=== PATIENT | male | born 1965 | race Caucasian/White ===

== ENCOUNTER 2020-08-25 16:53 | Emergency (ER) | payer OTHER, BC ==
[~2020-08-25] VITALS: Ht 170.2 cm; Wt 86.2 kg
[2020-08-25 16:55] VITALS: BP 126/86
[2020-08-25] MEDS ORDERED: SEROQUEL 100 M100 MG PO (16:58)
[2020-08-25] MEDS ORDERED: KEPPRA XR500 MG PO (16:58)
[2020-08-25] MEDS ORDERED: NORVASC10 MG PO (16:59)
[2020-08-25] MEDS ORDERED: COZAAR 50 MG TA50 MG PO (17:00)
== END 2020-08-25 17:05 | disposition home or self-care (01) ==
LOC: EDSEX 16:53 → ER 16:53
DX: F41.9 Anxiety disorder, unspecified (principal); F22 Delusional disorders; F15.10 Other stimulant abuse, uncomplicated; F17.210 Nicotine dependence, cigarettes, uncomplicated; Z79.899 Other long term (current) drug therapy

== ENCOUNTER 2021-04-04 15:18 | Emergency (ER) | payer OTHER, BC ==
[~2021-04-04] VITALS: Ht 170.2 cm; Wt 90.7 kg
[~2021-04-04 15:18] MED LIST: COZAAR 50 MG TA50 MG PO; KEPPRA XR500 MG PO; NORVASC10 MG PO; SEROQUEL 100 M100 MG PO
[2021-04-04 15:47] LABS: BASOPHILS 0.5 % (0.0-2.0); EOSINOPHILS 0.7 % (0.0-3.0); HEMATOCRIT 39.7 % (42.0-52.0); HEMOGLOBIN 13.5 gm/dL (14.0-18.0); LYMPHOCYTES 17.5 % (24.0-44.0); MCH 33.4 pg (26.0-34.0); MCV 98.3 fL (80.0-100.0); MONOCYTES 10.6 % (1.0-8.0); PLATELET COUNT 298 thou/uL (150-400); POLYS 70.7 % (36.0-66.0); RBC 4.04 mil/uL (4.50-6.00); RDW 14.3 % (10.5-14.5); WBC 8.5 thou/uL (4.0-11.0)
[2021-04-04 15:56] LABS: ANION GAP 9 mmol/L (7-16); BUN 20 mg/dL (7-18); CHLORIDE 103 mmol/L (98-107); CO2 26 mmol/L (21-32); CREATININE 1.1 mg/dL (0.7-1.3); GLUCOSE 116 mg/dL (74-106); POTASSIUM 3.8 mmol/L (3.5-5.1); SODIUM 138 mmol/L (136-145)
[2021-04-04 16:02] LABS: SALICYLATE < 2.8 mg/dL (2.8-20.0); SGOT 31 U/L (15-37); SGPT 42 U/L (16-63); TOTAL BILIRUBIN 0.6 mg/dL (0.2-1.0); TOTAL PROTEIN 7.8 g/dL (6.4-8.2)
[2021-04-04 17:14] LABS: URINE BILIRUBIN NEGATIVE (Negative); URINE BLOOD NEGATIVE (Negative); URINE CLARITY CLEAR; URINE COLOR YELLOW; URINE GLUCOSE-RANDOM* NEGATIVE (Negative); URINE KETONES NEGATIVE (Negative); URINE LEUKOCYTES-REFLEX NEGATIVE (Negative); URINE NITRITE-REFLEX NEGATIVE (Negative); URINE PROTEIN (DIPSTICK) NEGATIVE (Negative); URINE SPECIFIC GRAVITY <= 1.005 (1.005-1.035); URINE UROBILINOGEN 0.2 E.U./dl (0.2-1.0)
[2021-04-04 17:22] LABS: AMP/METHAMP Negative (Negative); BARBITURATES Negative (Negative); BENZODIAZEPINES Negative (Negative); COCAINE Negative (Negative); METHADONE Negative (Negative); OPIATES Negative (Negative); PCP Negative (Negative)
[2021-04-04 18:40] VITALS: BP 000/000
== END 2021-04-04 18:41 | disposition home or self-care (01) ==
LOC: ER 15:18
PROVIDERS: Physician Assistant
DX: F32.9 Major depressive disorder, single episode, unspecified (principal); F17.210 Nicotine dependence, cigarettes, uncomplicated; Z20.822 Contact with and (suspected) exposure to COVID-19

== ENCOUNTER 2021-09-18 23:43 | Emergency (ER) | payer OTHER, BC ==
[~2021-09-18] VITALS: Ht 170.2 cm; Wt 104.3 kg
[2021-09-19 00:26] LABS: URINE BILIRUBIN NEGATIVE (Negative); URINE BLOOD NEGATIVE (Negative); URINE CLARITY CLEAR; URINE COLOR YELLOW; URINE GLUCOSE-RANDOM* NEGATIVE (Negative); URINE KETONES TRACE (Negative); URINE LEUKOCYTES-REFLEX NEGATIVE (Negative); URINE NITRITE-REFLEX NEGATIVE (Negative); URINE PROTEIN (DIPSTICK) TRACE (Negative); URINE SPECIFIC GRAVITY 1.025 (1.005-1.035); URINE UROBILINOGEN 0.2 E.U./dl (0.2-1.0)
[2021-09-19 01:00] LABS: ABSOLUTE NEUTROPHILS 2.5 thou/uL (1.4-8.2); BASOPHILS 0.9 % (0.0-2.0); EOSINOPHILS 5.7 % (0.0-3.0); HEMATOCRIT 40.6 % (42.0-52.0); HEMOGLOBIN 13.7 gm/dL (14.0-18.0); LYMPHOCYTES 28.7 % (24.0-44.0); MCH 33.9 pg (26.0-34.0); MCHC 33.7 g/dL (28.0-37.0); MCV 100.6 fL (80.0-100.0); MONOCYTES 12.2 % (1.0-8.0); PLATELET COUNT 249 thou/uL (150-400); POLYS 52.5 % (36.0-66.0); RBC 4.03 mil/uL (4.50-6.00); WBC 4.7 thou/uL (4.0-11.0)
[2021-09-19 01:24] LABS: CALCIUM 8.8 mg/dL (8.5-10.1); POTASSIUM 3.8 mmol/L (3.5-5.1)
[2021-09-19] MEDS ORDERED: NAPROSYN500 MG PO (01:44)
[2021-09-19] MEDS ORDERED: AZITHROMYCIN 2250 MG PO (01:44)
[2021-09-19 01:52] VITALS: BP 141/98
--- NOTE | 2021-09-19 10:53 | EKG ---
[address] [employer] [address] ELECTROCARDIOGRAM REPORT Name: SHARON VALLADARES Room #: [facility] Win#: [id number] Admission: 09/18/21 Attend Phys: Discharge: 09/19/21 Date of : 63 Report #: [id number] [facility] ED Test Date: 2021-09-19 Test Time: 01:39:16 Pat Name: SHARON VALLADARES Department: Room: Gender: [employer] Agent: stephanie : 1965 Requested By: Elmer Pinedo Order Number: [id number] MD: Shon Riddle Measurements Intervals [place] Rate: 71 P: 47 OK: 132 QRS: 41 QRSD: 91 T: 48 QT: 387 QTc: 421 Interpretive Statements Sinus rhythm No previous ECG available for comparison Electronically Signed On 09-19-2021 10:52:36 [employer] by Shon Riddle [email or web address] <ELECTRONICALLY SIGNED> By: Shon Riddle MD 09/19/21 1052 [id number] Shon [email or web address] MD /EPI
== END 2021-09-19 01:52 | disposition home or self-care (01) ==
LOC: ER 23:43
PROVIDERS: Emergency Medicine
DX: J18.9 Pneumonia, unspecified organism (principal); M54.9 Dorsalgia, unspecified; F17.210 Nicotine dependence, cigarettes, uncomplicated; Z79.899 Other long term (current) drug therapy